=== PATIENT | female | born 1975 | race Caucasian/White ===

== ENCOUNTER 2017-03-11 09:04 | Day surgery (SDC) | payer OTHER ==
[~2017-03-11 09:04] MED LIST: Lactated Ringers 1,000 ML IV SCH
[2017-03-11] MEDS ORDERED: Propofol 200 MG/20 ML SDV ONE ×2 (10:19→13:33)
[2017-03-11] MEDS ORDERED: Midazolam 1 MG/ML 2 ML SDV ONE (10:20)
--- NOTE | 2017-03-11 12:15 | PCM.PREANE ---
Preanesthetic Assessment - Anesthesia/Transfusion/Family Hx Anesthesia History: Prior Anesthesia Without Reaction Family History of Anesthesia Reaction: No Transfusion History: No Prior Transfusion(s) - Review of Systems General: No Symptoms Pulmonary: No Symptoms Cardiovascular: No Symptoms Neurological: No Symptoms Other: Reports: None - Physical Assessment NPO Status Date: 03/11/17 NPO Status Time: 09:20 O2 Sat by Pulse Oximetry: 95 Respiratory Rate: 16 Vital Signs: Last Vital Signs Temp 36.9 C 03/11/17 09:13 Pulse 86 03/11/17 09:13 Resp 16 03/11/17 09:13 BP 103/68 03/11/17 09:13 Pulse Ox 95 03/11/17 09:13 Height: 1.63 m Weight: 76.657 kg ASA Class: 2 Mental Status: Alert & Oriented x3 Airway Class: Mallampati = 2 Dentition: Reports: Dentures, Partial ROM/Head Extension: Full Lungs: Clear to Auscultation, Normal Respiratory Effort Cardiovascular: Regular Rate, Regular Rhythm - Allergies Allergies/Adverse Reactions: Allergies Allergy/AdvReac Type Severity Reaction Status Date / Time No Known Allergies Allergy Verified 03/09/17 08:38 - Anesthesia Plan Pre-Op Medication Ordered: None - Acknowledgements Anesthesia Type Planned: MAC Pt an Appropriate Candidate for the Planned Anesthesia: Yes Alternatives and Risks of Anesthesia Discussed w Pt/Guardian: Yes Pt/Guardian Understands and Agrees with Anesthesia Plan: Yes PreAnesthesia Questionnaire HEENT History: Reports: Other (See Below) Other HEENT History: top denture, bottom partial Gastrointestinal History: Reports: Other (See Below) Other Gastrointestinal History: occasional heartburn Genitourinary History: Reports: None Musculoskeletal History: Reports: Fracture Other Musculoskeletal History: hx fx collarbone, foot and left arm Neurological History: Reports: Migraines Psychiatric History: Reports: Anxiety, Depression - Past Surgical History Head Surgeries/Procedures: Reports: None HEENT Surgical History: Reports: Naso-Sinus Surgery Other HEENT Surgeries/Procedures: hx nasal surgery for fx nose GI Surgical History: Reports: Appendectomy, Cholecystectomy Female Surgical History: Reports: Hysterectomy - SUBSTANCE USE Smoking Status *Q: Current Every Day Smoker Tobacco Use Within Last Twelve Months: Cigarettes - HOME MEDS Home Medications: Home Meds . [No Known Home Meds] 03/09/17 [History] - CURRENT (IN HOUSE) MEDS Current Meds: Current Medications Lactated Ringer's (Ringers, Lactated) 1,000 mls @ 125 mls/hr IV ASDIRECTED MALA Last Admin: 03/11/17 10:20 Dose: 125 mls/hr Discontinued Medications Lidocaine HCl (Xylocaine-Mpf 1%) Confirm Administered Dose 5 ml .ROUTE .STK-MED ONE Stop: 03/11/17 10:21 Midazolam HCl (Versed 1 Mg/Ml) Confirm Administered Dose 2 mg .ROUTE .STK-MED ONE Stop: 03/11/17 10:21 Propofol (Diprivan 20 Ml) Confirm Administered Dose 400 mg .ROUTE .STK-MED ONE Stop: 03/11/17 10:20
[2017-03-11] MEDS ORDERED: fentaNYL 100 MCG/2 ML SDV ONE (13:17)
--- NOTE | 2017-03-11 13:56 | PCM.OPNOTE ---
- General Post-Op/Procedure Note Date of Surgery/Procedure: 03/11/17 Operative Procedure(s): Esophagogastroduodenoscopy with biopsy. Colonoscopy with ascending colon biopsy. Pre Op Diagnosis: Progressive heartburn. Unexplained weight loss. Change in bowel habits. Post-Op Diagnosis: Moderate gastritis. Hiatal hernia. Sigmoid diverticulosis. Nonspecific colitis. Anesthesia Technique: MAC (ASA II) Primary Surgeon: Geoff Cortez Hims Clerk: Katherine Clark Condition: Good Free Text/Narrative:: Dictation [id number] CPT CODE [id number]
[2017-03-11] MEDS ORDERED: Lactated Ringers 1,000 ML IV SCH (14:00)
--- NOTE | 2017-03-11 14:20 | OR ---
SURGEON: Geoff Cortez M.D. DATE OF PROCEDURE: 03/11/2017 OPERATION PERFORMED: Esophagogastroduodenoscopy with biopsy. ANESTHESIA: MAC. ASA CLASSIFICATION: II. PREOPERATIVE DIAGNOSES: 1. Progressive heartburn. 2. Unexplained weight loss. POSTOPERATIVE DIAGNOSES: 1. Moderate acute gastritis. 2. Hiatal hernia. DESCRIPTION OF PROCEDURE: The patient was taken to the endoscopy room and positioned on the endoscopy table in the supine position. Time-out was called for appropriate identification of the patient and procedure. Monitored anesthesia care was provided. The bite-block was placed between the patient's teeth. The gastroscope was inserted through the bite-block and advanced without difficulty through the esophagus, stomach into the duodenum where examination was carried out in a retrograde fashion. The duodenum shows no acute inflammatory changes or ulcerations. Stomach shows a [id number] gastritis. Antral biopsies were obtained to look for the presence of Helicobacter pylori. The gastroscope was retroflexed to visualize the proximal stomach. The patient does have a moderate-sized hiatal hernia. The gastroscope was straightened and slowly withdrawn carefully visualizing both greater and lesser curvature. No lesions were identified. The hiatal hernia was also seen in a forward viewing fashion. I did not see any evidence of esophagitis. The esophagus demonstrated good contractility. The vocal cords were visualized as the scope was withdrawn and noted to move symmetrically. The patient tolerated the procedure well and following colonoscopy was taken to recovery room in stable condition. ROBER MEDINA /[id number]
--- NOTE | 2017-03-11 14:32 | OR ---
SURGEON: Geoff Cortez M.D. DATE OF PROCEDURE: 03/11/2017 OPERATION PERFORMED: Colonoscopy with ascending colon biopsy. ANESTHESIA: MAC. ASA CLASSIFICATION: II. PREOPERATIVE DIAGNOSIS: Change in bowel habits, unexplained weight loss. POSTOPERATIVE DIAGNOSES: 1. Nonspecific colitis. 2. Mild diverticulosis. DESCRIPTION OF PROCEDURE: With the patient having completed esophagogastroduodenoscopy, she was now positioned in the left lateral decubitus position. The colonoscope was inserted into the rectum and advanced with minimal difficulty to the cecum, where the colonoscope was retroflexed to visualize the ascending colon from below. The colonoscope was then straightened and slowly withdrawn. Cecum does show some mild inflammatory changes. These are nonspecific. Biopsies of the ascending colon were obtained. The remainder of the ascending colon, hepatic flexure, transverse colon, splenic flexure, and descending colon showed no tumors, polyps, diverticula, or angiodysplastic changes. The sigmoid colon demonstrated a few scattered diverticula. No stricture, spasm, or bleeding was noted. No polyps were encountered. The colonoscope was withdrawn to the rectum and retroflexed to visualize the anal orifice from above. No tumors or polyps were seen and there were no acute hemorrhoidal changes. The colonoscope was then straightened, the rectum aspirated, and the colonoscope removed. The patient tolerated the procedure well and was taken to recovery room in stable condition. ROBER MEDINA /[id number]
--- NOTE | 2017-03-11 14:38 | PCM.POSTAN ---
POST ANESTHESIA ASSESSMENT - MENTAL STATUS Mental Status: Alert - RESPIRATORY Respiratory Status: Respiratory Rate WNL, Airway Patent, O2 Saturation Stable - CARDIOVASCULAR CV Status: Pulse Rate WNL, Blood Pressure Stable - GASTROINTESTINAL GI Status: No Symptoms - POST OP HYDRATION Hydration Status: Adequate & Stable
--- NOTE | 2017-03-11 14:38 | PCM48HPAN ---
Post Anesthesia Note - EVALUATION WITHIN 48HRS OF ANESTHETIC Vital Signs in Normal Range: Yes Patient Participated in Evaluation: Yes Respiratory Function Stable: Yes Airway Patent: Yes Cardiovascular Function Stable: Yes Hydration Status Stable: Yes Pain Control Satisfactory: Yes Nausea and Vomiting Control Satisfactory: Yes Mental Status Recovered: Yes
[2017-03-11 15:11] VITALS: BP 96/61
== END 2017-03-11 14:50 | disposition home or self-care (01) ==
LOC: MW.SDS 09:04
PROVIDERS: ATTEND Surgery
DX: K29.50 Unspecified chronic gastritis without bleeding (principal); K52.9 Noninfective gastroenteritis and colitis, unspecified; K44.9 Diaphragmatic hernia without obstruction or gangrene; K57.30 Diverticulosis of large intestine without perforation or abscess without bleeding; Z86.59 Personal history of other mental and behavioral disorders; Z90.49 Acquired absence of other specified parts of digestive tract; Z90.710 Acquired absence of both cervix and uterus; Z98.890 Other specified postprocedural states; F17.210 Nicotine dependence, cigarettes, uncomplicated
CPT/HCPCS: 43239; 45380; J2250; J3010; J7120; 00740; 88305; 88312; J2704